=== PATIENT | male | born 1985 | race African-American/Black ===

== ENCOUNTER 2020-11-23 11:02 | Emergency (ER) | payer SELFPAY ==
[~2020-11-23] VITALS: Ht 188 cm; Wt 90.0 kg
[2020-11-23] MEDS ORDERED: IBUP-2030 MT (14:30)
[2020-11-23] MEDS ORDERED: P20 MT (14:30)
[2020-11-23 15:09] VITALS: BP 121/75
== END 2020-11-23 15:09 | disposition home or self-care (01) ==
LOC: ER 11:20
DX: R50.9 Fever, unspecified (principal); Z20.822 Contact with and (suspected) exposure to COVID-19
CPT/HCPCS: 71045; 87070; 87430; 99284; C9803; U0003; U0005